=== PATIENT | female | born 1960 | race African-American/Black ===

== ENCOUNTER 2019-08-23 16:45 | Emergency (ER) | payer OTHER ==
[~2019-08-23] VITALS: Ht 162.6 cm; Wt 108.9 kg
--- NOTE | 2019-08-23 16:45 | NUR ---
Patient to ER bed 5 to gown for evaluation. Side rails up. Report given to CAMILA Beck.
--- NOTE | 2019-08-23 16:46 | NUR ---
Patient is awake, alert, and oriented x1. Patient was brought in via EMS for attempting to hurt herself. Per paramedics patient took an unknown number of pills and had 13 alcholic beverages within 7 hours in an attempt to kill herself. Patient verbalizes that she still wants to hurt herself, but has no specific plans. Patient states she wants help. Patient is not able to verbalize what kind of pills she took or how many.
[2019-08-23 16:50] VITALS: BP_SYST 125
--- NOTE | 2019-08-23 17:10 | NUR ---
Patient's son arrived and is at bedside.
--- NOTE | 2019-08-23 17:14 | NUR ---
2 unsuccessful IV attempts made.
[2019-08-23] MEDS ORDERED: NACL 0.9% 1,000 ML IV ONE (17:15)
[2019-08-23 17:32] LABS: BASOPHILS # (AUTO) 0.1 K/uL (0.0-0.2); EOSINOPHILS # (AUTO) 0.1 K/uL (0.0-0.4); EOSINOPHILS % (AUTO) 1.8 % (0.0-4.0); HEMATOCRIT 46.3 % (36-48); HEMOGLOBIN 15.6 g/dL (12.0-16.0); LYMPHOCYTES # (AUTO) 3.4 K/uL (1.0-5.5); LYMPHOCYTES % (AUTO) 48.1 % (20.5-51.5); MEAN CORPUSCULAR HEMOGLOBIN 32 pg (27-31); MEAN CORPUSCULAR HGB CONC 34 % (32-36); MEAN CORPUSCULAR VOLUME 96 fL (79.0-98.0); MONOCYTES # (AUTO) 0.4 K/uL (0.0-1.0); NEUTROPHILS # (AUTO) 3.1 K/uL (1.8-7.7); NEUTROPHILS % (AUTO) 44.1 % (40.0-70.0); PLATELET COUNT (AUTO) 317 K/uL (130-430); RED BLOOD CELL COUNT(AUTO) 4.83 MIL/uL (4.2-6.2); RED CELL DISTRIBUTION WIDTH 14.3 % (9.0-15.0); WHITE BLOOD COUNT (AUTO) 7.1 K/uL (4.8-10.8)
[2019-08-23 17:48] LABS: ANION GAP 13 (5-15); CALCIUM 9.4 mg/dL (8.4-11.0); CHLORIDE 104 mmol/L (98-107); CREATININE 0.57 mg/dL (0.55-1.30); GLUCOSE 106 mg/dL (70-99); SODIUM SERUM 142 mmol/L (136-145); UREA NITROGEN, BLOOD 5 mg/dL (8-21)
[2019-08-23 17:49] LABS: GFR AFRICAN AMERICAN 141 mL/min (>90)
[2019-08-23 17:52] LABS: BILIRUBIN,URINE NEGATIVE (NEGATIVE); CLARITY/URINE CLEAR (CLEAR); COLOR,URINE YELLOW (YELLOW); GLUCOSE,URINE NEGATIVE (NEGATIVE); KETONES,URINE NEGATIVE (NEGATIVE); PH,URINE 5.5 (5.0-8.0); PROTEIN URINE 2+ (NEGATIVE)
[2019-08-23 17:53] LABS: BLOOD, URINE 1+ (NEGATIVE); LEUKOCYTE ESTERASE ,URINE NEGATIVE (NEGATIVE); NITRITE, URINE NEGATIVE (NEGATIVE)
[2019-08-23 17:55] LABS: ALANINE AMINOTRANSFERASE 16 U/L (12-78); ASPARTATE AMINOTRANSFERASE 20 U/L (10-37); TOTAL BILIRUBIN 0.3 mg/dL (0.0-1.0)
[2019-08-23 17:56] LABS: BACTERIA,URINE None Seen /HPF (None Seen); WBC,URINE 0-3 /HPF (0-3)
[2019-08-23 18:02] LABS: ACETAMINOPHEN < 1 ug/mL (1-30); ALCOHOL, BLOOD 421 mg/dL (<10)
--- NOTE | 2019-08-23 18:05 | NUR ---
Patient is demanding ativan, asking why she is receiving normal saline instead of ativan. Wants to speak with MD. Dr. Patel made aware.
[2019-08-23 18:07] LABS: CHOLESTEROL 330 mg/dL (<200); HDL CHOLESTEROL 145 mg/dL (>55); LDL CHOLESTEROL 166 mg/dL (<100); TRIGLYCERIDES 66 mg/dL (30-150)
--- NOTE | 2019-08-23 18:18 | NUR ---
Son came to nursing station to state his mother wants to speak with the doctor. Dr. Gray made aware.
[2019-08-23 18:21] LABS: BARBITURATE, URINE NEGATIVE (NEG <=200); BENZODIAZEPINE, URINE NEGATIVE (NEG <=150); CANNABINOID, URINE NEGATIVE (NEG <=50); COCAINE, URINE NEGATIVE (NEG <=150); METHAMPHETAMINES SCREEN,URINE NEGATIVE (NEG <=500); OPIATE, URINE NEGATIVE (NEG <=100); PHENCYCLIDINE SCREEN,URINE NEGATIVE (NEG <=25); UR TRICYCLIC ANTIDEPRESSANTS NEGATIVE (NEG <=300); URINE AMPHETAMINE NEGATIVE (NEG <=500); URINE METHADONE NEGATIVE (NEG <=200); URINE OXYCODONE SCREEN NEGATIVE (NEG <=100); URINE PROPOXYPHENE SCREEN NEGATIVE (NEG <=300)
--- NOTE | 2019-08-23 18:36 | NUR ---
Dr. Gray at bedside talking to patient and her son.
--- NOTE | 2019-08-23 18:36 | NUR ---
Patient is now screaming because she was wanded by security. She is screaming for the doctor.
[2019-08-23] MEDS ORDERED: FOLIC ACID 1 MG, THIAMINE HCL 100 MG, MAGNESIUM SULFATE 1 GM, MVI 10 ML in NACL 0.9% 1,... IV ONE (18:45)
--- NOTE | 2019-08-23 19:11 | NUR ---
Report given to CAMILA Louise for continuation of care.
[2019-08-23] MEDS ORDERED: THIAMINE HCL 100 MG/ML VIAL ONE (19:25)
[2019-08-23] MEDS ORDERED: FOLIC ACID 5 MG/ML VIAL IV ONE (19:25)
[2019-08-23] MEDS ORDERED: MAGNESIUM SULFATE 1 GM/2 ML VIAL ONE (19:25)
--- NOTE | 2019-08-23 20:18 | NUR ---
S/W Ashely Bravo, pt transferred to Dr. Malcolm in stable condition
--- NOTE | 2019-08-23 20:24 | NUR ---
DC'd [facility] IVF per Dr. Martinez verbal order, Transport does not allow for [facility] IVF therapy
[2019-08-23 20:25] VITALS: BP_SYST 140
--- NOTE | 2019-08-23 20:25 | NUR ---
Patient to be transferred to [facility]. Is being transferred due to higher level of care. Receiving facility has accepting physician and available space. ER physician has signed transfer form. Patient or responsible alliance party has agreed to transfer and signed form. Patient belongings inventoried and will be sent with patient. Copy of nursing notes, lab reports, EKG, Physicians Orders and X-rays to be sent with patient. Report called to at receiving facility. Receiving physician is Dr. Malcolm. designated ambulance service is present to transport Pt now
== END 2019-08-23 20:25 | disposition short-term general hospital (02) ==
LOC: SED 16:45
DX: F10.229 Alcohol dependence with intoxication, unspecified (principal); Y90.8 Blood alcohol level of 240 mg/100 ml or more
CPT/HCPCS: 36415; 80053; 80061; 80307; 81000; 83036; 85025; 93005; 96365; 99285; G0480; G0481; G0482; J3411; J3475; J3490; J7030